=== PATIENT | female | born 1985 | race Caucasian/White ===

== ENCOUNTER 2020-02-26 07:16 | Inpatient (IN) ==
[2020-02-26] MEDS ORDERED: OXYTOCIN 30 UNITS/500 ML BAG IV PRN ×3 (08:25→23:39)
--- NOTE | 2020-02-26 08:33 | History & Physical Report ---
Date of Service February 26, 2020 Assessment & Plan (1) Gestational diabetes mellitus (GDM): (2) Post-term , 40-42 weeks of gestation: 34 yo at 40.6 wks , IOL, GDMA1 VSS Afebrile FS 84 mg/ dl this am Discussed increased risk of shoulder dystocia with GDM and larger babies Bed side US with EFW close to her 1st baby Plan to admit, monitor, Oxytocin, epidural, AROM and anticipe History of Present Illness Primary Care Provider: Jaymie Hartman DO Patient is a 34 yo at 40.6 wk with GDAM1 who is scheduled for IOL for postdates No complaints Irregular ctxs No LOF/VB +FM GBS negative GDMA1: diet controlled Rubella non immune Allergies Allergy/AdvReac Type Severity Reaction Status Date / Time Bactrim Allergy Mild SEVERE Unverified 04/15/16 11:26 SNEEZING sulfamethoxazole Allergy Mild SEVERE Unverified 12/05/18 11:17 SNEEZING trimethoprim Allergy Mild SEVERE Unverified 12/05/18 11:17 SNEEZING Home Medications Home Medications Medication Instructions Recorded Confirmed Type PNV cmb#95-ferrous fumarate-FA 1 tab PO QAM 12/05/18 02/26/20 History [] Patient History Medical History Abdominal pain (Acute) ACL (anterior cruciate ligament) tear (Resolved) Dizziness (Acute) Medication reaction (Acute) Precordial chest pain (Acute) uterine contractions Term Surgical History H/O arthroscopic knee surgery (Resolved) Social History 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 Drug Required: No Beliefs That Will Affect Care: None marital status: Current Living Situation: Family Feels Safe at Home: Yes Smoking Status: Never smoker Second Hand Exposure: No ; Hx Alcohol Use: No Hx Substance Use: No OB History in 2016, 8 b 8 oz, no complications [employer] W[employer] WASH History No h/o STD Review of Systems All systems reviewed & are unremarkable except as noted in HPI & below Physical Exam Constitutional: WD/WN, vitals as above well developed and well nourished Comfortable Gastrointestinal (Abdomen): normal bowel sounds, soft, nontender, no hepatosplenomegaly (gravid) Bed side US: vertex, EFW: [id number] gr Genitourinary: normal external appearance Manual OB Exam: + cervical dilation 2 cm, + cervical effacement 50% and + station -2 OB Exam Monitor Tracing: + external uterine monitor used and + category I Results & Data Vital Signs (Past 12 Hours) Vital Signs Pulse BP 02/26/20 07:58 98 H 118/77
[2020-02-26 08:58] LABS: Hematocrit (blood only) 39.2 % (37-47); Hemoglobin 13.6 g/dL (12.0-16.0); Mean Corpuscular Hemoglobin 34.8 pg (25-34); Mean Corpuscular Volume 100.3 fL (80-100); Mean Platelet Volume 9.7 fL (7.4-10.4); Platelet Count 173 K/uL (130-400); RDW Coefficient of Variation 13.5 % (11.5-14.5); RDW Standard Deviation 49.7 fL (36.4-46.3); Red Blood Count 3.91 M/uL (4.2-5.4); White Blood Count 8.92 K/uL (4.8-10.8)
[2020-02-26] MEDS: LACTATED RINGER'S 1,000 ML IV PRN ×3 (09:18→19:16)
[2020-02-26 09:19] LABS: Alanine Aminotransferase 20 U/L (12-78); Albumin Level 2.9 gm/dl (3.4-5.0); Aspartate Aminotransferase 19 U/L (15-37); BUN Creatinine Ratio 14.2 (10-20); Bilirubin Direct < 0.1 mg/dl (0-0.2); Blood Urea Nitrogen 11 mg/dl (7-18); Calcium 9.3 mg/dl (8.5-10.1); Carbon Dioxide 24 mmol/L (21-32); Chloride 108 mmol/L (98-107); Creatinine Clr Calc Pharmacy 109.9 ml/min; Est GFR (African American) 111.5; Est GFR (Non-African American) 96.2; Glucose 95 mg/dl (70-99); Potassium 3.9 mmol/L (3.5-5.1); Sodium 141 mmol/L (136-145)
[2020-02-26 09:21] LABS: Albumin Globulin Ratio 0.8 (0.9-2); Alkaline Phosphatase 145 U/L (45-117); Bilirubin,Total 0.4 mg/dl (0.2-1); Globulin 3.7 gm/dl (2.5-4.0); Total Protein 6.6 gm/dl (6.4-8.2)
[2020-02-26 09:49] LABS: Mean Corpuscular Hgb Conc 34.7 g/dL (32-36)
[2020-02-26] MEDS ORDERED: miSOPROStoL 50 MCG TAB PO SCH (10:15)
--- NOTE | 2020-02-26 11:19 | Obstetrical Progress Note ---
Date of Service February 26, 2020 Assessment & Plan Admission and Anticipated Discharge Date Admission Date: February 26, 2020 Subjective Patient declined Oxytocin and asked for cervical ripening so that she can ambulate She took PO Cytotec at 1042 and feels well, no ctxs/ LOF/VB +FM's Reviewed her plan Discussed her VE findings and her cervix was feeling soft, central, low and 2 cm dilated Discussed differences between Oxytocin and PG All questions were answered Results & Data ([facility]) Vital Signs (Past 12 Hours) Vital Signs Temp Pulse Resp BP 02/26/20 10:45 96 H 122/75 02/26/20 09:25 90 124/77 02/26/20 08:02 37.2 C 98 H 20 115/77 02/26/20 07:58 98 H 118/77
--- NOTE | 2020-02-26 14:51 | Obstetrical Progress Note ---
Date of Service February 26, 2020 Assessment & Plan Admission and Anticipated Discharge Date Admission Date: February 26, 2020 Subjective Patient is reevaluated Feels irregular mild ctxs, not painful No LOF/VB +FM Discussed continuing with Cytotec or Cervidil or Pitocin and differences in between, half lifes and what to expect She wanted her cervix to be checked and then decide. CLARICE 2-3 cm/ 60%/ -1, bulging tight bag Patient decided on Pitocin Plan to start low dose Pitocin Continue to monitor Results & Data ([facility]) Vital Signs (Past 12 Hours) Vital Signs Temp Pulse Resp BP 02/26/20 13:46 89 123/75 02/26/20 10:45 96 H 122/75 02/26/20 09:25 90 124/77 02/26/20 08:02 37.2 C 98 H 20 115/77 02/26/20 07:58 98 H 118/77
[2020-02-26] MEDS ORDERED: ePHEDrine sulfate 50 MG/ML AMP ONE (18:41)
[2020-02-26] MEDS ORDERED: BUPIVACAINE 0.25% 30 ML VIAL ONE (18:42)
[2020-02-26] MEDS ORDERED: fentaNYL citrate 100 MCG/2 ML VIAL ONE (18:42)
[2020-02-26] MEDS ORDERED: fentaNYL 2MCG/ML ROPIV 1.25MG/ML 100 ML BAG EPI ONE (18:43)
--- NOTE | 2020-02-26 19:58 | Anesthesiology Consultation ---
Date of Service February 26, 2020 Assessment & Plan (1) Encounter for pre-operative examination: Chart Review Chart Review: Acceptable Risk for Surgery and Patient NOT seen in Pre Admission Testing Consults Requested none ASA ASA2 Proposed Anesthesia Anesthesia Type: Labor Epidural Risk / Benefits Reviewed With: PT / POA / Parent / Guardian, Accepts Plan and Informed Consent Obtained History Height/Weight Height: 5 ft 6 in Weight: 86.636 kg Allergies Allergy/AdvReac Type Severity Reaction Status Date / Time Bactrim Allergy Mild SEVERE Unverified 04/15/16 11:26 SNEEZING sulfamethoxazole Allergy Mild SEVERE Verified 02/26/20 19:31 SNEEZING trimethoprim Allergy Mild SEVERE Verified 02/26/20 19:31 SNEEZING Medications Home Medications Medication Instructions Recorded Confirmed Last Taken PNV cmb#95-ferrous fumarate-FA 1 tab PO QAM 12/05/18 02/26/20 02/26/20 06:00 [] Active Medications Generic Name Dose Route Start Last Admin Trade Name Freq PRN Reason Stop Dose Admin Lactated Ringer's 1,000 mls @ 150 mls/hr 02/26/20 08:25 02/26/20 19:16 Lr IV 02/28/20 08:24 125 mls/hr .[id number] PRN Administration L&D Protocol Protocol Oxytocin 30 units in 500 mls @ 2 mls/hr 02/26/20 09:35 02/26/20 15:00 Pitocin IV 02/28/20 09:34 0.12 units/hr .Q24H PRN 2 mls/hr Labor Induction/Augmentation Administration Protocol 0.12 UNITS/HR Misoprostol 50 mcg 02/26/20 10:15 02/26/20 10:42 Cytotec PO 03/27/20 10:14 50 mcg Q4 IGNACIO Administration NPO Date Last Intake of Fluids: 02/26/20 Time Last Intake of Fluids: 19:53 Date Last Intake of Solids: 02/26/20 Time Last Intake of Solids: 07:00 Past Medical History Medical History Abdominal pain (Acute) ACL (anterior cruciate ligament) tear (Resolved) Dizziness (Acute) Medication reaction (Acute) Precordial chest pain (Acute) uterine contractions Term Exercise / Class Metabolic Activity II 4-5 Yardwork/Stairs/Walk up hill Past Family History Family History Other No pertinent family history in first degree relatives Past Surgical History Surgical History H/O arthroscopic knee surgery (Resolved) Past Anesthesia History No Hx of Anesthesia Complications History of PONV No Hx of PONV Social History Smoking Status: Never smoker Do You Dip or Chew Tobacco: No Hx Alcohol Use: No Hx Substance Use: No Review of Systems Patient denies history of abnormal bleeding or bleeding disorder. Patient denies active use of anticoagulants other than low dose aspirin. Patient denies numbness, tingling or weakness in lower extremities. Physical Exam Vital Signs Last Vital Signs Temp 36.6 C 02/26/20 19:09 Pulse 84 02/26/20 19:09 Resp 20 02/26/20 19:09 BP 132/74 02/26/20 19:09 Constitutional not obese (Gravid) ENMT Mouth: no TMJ abnormality and oral opening not small Thyromental Distance: > or= 3.5 Finger Breadths Mallampati Class: II Neck normal visual inspection; neck extension not limited Respiratory normal respiratory effort Auscultation: lungs clear to auscultation bilaterally Cardiovascular Rate/Rhythm: regular rate and regular rhythm Heart Sounds: no murmur Neurologic moves all extremities Motor/Sensory: no sensory deficit Psychiatric Orientation: alert and oriented x 3 Testing Laboratory Results 02/26/20 08:46 02/26/20 08:46 02/26/20 02/26/20 02/26/20 19:03 13:28 09:23 POC Glucose 86 80 98
[2020-02-26] MEDS ORDERED: NALOXONE HCL 0.4 MG/1 ML VIAL/CARP IV PRN (21:05)
[2020-02-26] MEDS ORDERED: NALOXONE HCL 1 MG in SODIUM CHLORIDE 0.9% 1000ML 1,000 ML IV PRN (21:05)
[2020-02-26] MEDS ORDERED: ePHEDrine sulfate 50 MG/ML AMP IV PRN (21:05)
[2020-02-26] MEDS ORDERED: DiphenhydrAMINE HCL 50 MG/ML VIAL IV PRN (21:05)
[2020-02-26] MEDS ORDERED: ONDANSETRON INJ 2 MG/ML 2 ML VIAL IV PRN (21:05)
[2020-02-26] MEDS ORDERED: fentaNYL 2MCG/ML ROPIV 1.25MG/ML 100 ML BAG EPI PRN (21:05)
--- NOTE | 2020-02-26 21:18 | Obstetrical Progress Note ---
Date of Service February 26, 2020 Assessment & Plan Admission and Anticipated Discharge Date Admission Date: February 26, 2020 Subjective Patient is reevaluated She has just received epidural for pain and comfortable SROM ed on 1955, cervix was checked by her nurse at 2100 and was 6 cm, high FHR categ I [place] ctxs q 2-4 min, pitocin is at 2 mu/min Continue to monitor, increase pitocin to 4 miu/min Results & Data ([facility]) Vital Signs (Past 12 Hours) Vital Signs Temp Pulse Resp BP Pulse Ox 20 21:16 93 H 134/82 072020 21:13 93 H 139/79 0720/20 21:11 97 H 129/78 100 07/20/20 21:10 97 H 130/79 0720/20 21:08 86 139/79 07/20/20 21:06 91 H 100 07/20/20 21:05 88 117/69 07/20/20 21:03 83 114/67 07/20/20 21:01 89 118/65 100 07/20/20 20:59 92 H 116/68 07/20/20 20:58 36.5 C 18 07/20/20 20:57 85 119/70 07/20/20 20:56 86 114/67 100 07/20/20 20:53 93 H 108/65 07/20/20 20:51 83 100/59 L 100 07/20/20 20:49 86 111/57 L 07/20/20 20:47 88 114/55 L 07/20/20 20:46 91 H 100 07/20/20 20:45 86 115/63 07/20/20 20:43 93 H 119/65 07/20/20 20:41 85 118/66 100 07/20/20 20:39 93 H 124/66 07/20/20 20:37 87 134/73 07/20/20 20:36 83 118/69 100 07/20/20 20:31 97 H 100 07/20/20 20:26 97 H 100 07/20/20 20:21 103 H 100 07/20/20 20:16 111 H 100 07/20/20 20:11 94 H 100 07/20/20 20:09 92 H 122/72 07/20/20 20:06 85 100 07/20/20 20:01 87 100 07/20/20 19:59 20 02/26/20 19:58 91 H 94 02/26/20 19:56 91 H 100 02/26/20 19:51 93 H 100 02/26/20 19:09 36.6 C 84 20 132/74 02/26/20 19:05 36.6 C 20 02/26/20 18:40 103 H 120/81 02/26/20 16:02 94 H 136/77 02/26/20 14:46 37.0 C 89 18 02/26/20 13:46 89 123/75 02/26/20 10:45 96 H 122/75 02/26/20 09:25 90 124/77
[2020-02-26] MEDS ORDERED: Nursing to Pharmacy Communication SCH (22:30)
--- NOTE | 2020-02-26 22:40 | Obstetrical Progress Note ---
Date of Service February 26, 2020 Assessment & Plan Admission and Anticipated Discharge Date Admission Date: February 26, 2020 Subjective Late entry from 2220 Patient state she does not feel anything, unable to move legs Epidural rate at 12 VE: ant lip station at +1 FHR categ I We contacted Dr. Curry and recommended to decrease rate to8 Continue to monitor Anticipate SVS Results & Data ([facility]) Vital Signs (Past 12 Hours) Vital Signs Temp Pulse Resp BP Pulse Ox 02/26/20 22:36 81 100 02/26/20 22:35 85 131/75 02/26/20 22:31 86 100 02/26/20 22:26 86 100 02/26/20 22:21 91 H 100 02/26/20 22:20 83 131/76 02/26/20 22:16 116 H 100 02/26/20 22:11 93 H 100 02/26/20 22:06 91 H 100 02/26/20 22:05 96 H 126/73 02/26/20 22:01 92 H 100 02/26/20 21:56 94 H 100 02/26/20 21:51 95 H 100 02/26/20 21:46 110 H 100 02/26/20 21:41 78 100 02/26/20 21:36 79 100 02/26/20 21:34 80 136/81 02/26/20 21:31 100 H 100 02/26/20 21:30 18 02/26/20 21:26 82 100 02/26/20 21:21 83 100 02/26/20 21:18 100 H 129/79 02/26/20 21:16 95 H 134/82 100 02/26/20 21:13 93 H 139/79 02/26/20 21:11 97 H 129/78 100 02/26/20 21:10 97 H 130/79 02/26/20 21:08 86 139/79 02/26/20 21:06 91 H 100 02/26/20 21:05 88 117/69 02/26/20 21:03 83 114/67 02/26/20 21:01 89 118/65 100 02/26/20 21:00 18 02/26/20 20:59 92 H 116/68 02/26/20 20:58 36.5 C 18 02/26/20 20:57 85 119/70 07/20/20 20:56 86 114/67 100 07/20/20 20:53 93 H 108/65 07/20/20 20:51 83 100/59 L 100 07/20/20 20:49 86 111/57 L 07/20/20 20:47 88 114/55 L 07/20/20 20:46 91 H 100 07/20/20 20:45 86 115/63 07/20/20 20:43 93 H 119/65 07/20/20 20:41 85 118/66 100 07/20/20 20:39 93 H 124/66 07/20/20 20:37 87 134/73 07/20/20 20:36 83 118/69 100 07/20/20 20:31 97 H 100 07/20/20 20:26 97 H 100 07/20/20 20:21 103 H 100 07/20/20 20:16 111 H 100 07/20/20 20:11 94 H 100 07/20/20 20:09 92 H 122/72 07/20/20 20:06 85 100 07/20/20 20:01 87 100 07/20/20 19:59 20 07/20/20 19:58 91 H 94 07/20/20 19:56 91 H 100 07/20/20 19:51 93 H 100 07/20/20 19:09 36.6 C 84 20 132/74 07/20/20 19:05 36.6 C 20 07/20/20 18:40 103 H 120/81 07/20/20 16:02 94 H 136/77 07/20/20 14:46 37.0 C 89 18 07/20/20 13:46 89 123/75 07/20/20 10:45 96 H 122/75
[2020-02-26] MEDS ORDERED: OXYCODONE/ACETAMINOPHEN 5mg/325mg TAB PO PRN (23:39)
[2020-02-26] MEDS ORDERED: bisacodyL 10 MG SUPP PR PRN (23:39)
[2020-02-26] MEDS ORDERED: SUPERCREAM 0.870% 15 GM JAR EXT PRN (23:39)
[2020-02-26] MEDS ORDERED: HYDROCORTISONE ACETATE 25 MG SUPP PR PRN (23:39)
[2020-02-26] MEDS ORDERED: MEASLES, MUMPS & RUBELLA VIRUS VIAL SQ ONE (23:39)
[2020-02-26] MEDS ORDERED: DIPHTHERIA/TETANUS/PERTUSSIS 0.5 ML SYR/VIAL IM ONE (23:39)
[2020-02-26] MEDS ORDERED: BENZOCAINE 20% AER SPR 82.5 GM CAN EXT PRN (23:39)
[2020-02-26] MEDS ORDERED: IBUPROFEN 600 MG TAB PO ONE (23:46)
[2020-02-27] MEDS: ACETAMINOPHEN 325 MG TAB PO PRN ×4 (01:27→19:51)
--- NOTE | 2020-02-27 03:21 | Delivery Summary ---
DATE OF OPERATION: 02/26/2020 TIME OF DELIVERY OF BABY: 22:57 p.m. DETAILS OF DELIVERY: The patient was found to be fully dilated and desired to push. She pushed through 3 contractions and then delivered the head without difficulty and then turtle sign was noted and unable to deliver shoulders with minimal traction. There was a nuchal cord around the neck x2 and those were reduced and then with Ruddy maneuver and suprapubic pressure was applied by her nurse but unable to deliver anterior / left shoulder. Then posterior/ right shoulder was delivered with the arm and then the rest of body was delivered without difficulty. Time between delivery of the head and body was less than 60 seconds. Baby was handed off to the mother where mouth and nose were suctioned. Cord was clamped x2 and cut. Baby was handed to the waiting pediatric team. He started to cry and move vigorously at the crib. Cord blood was obtained. Vagina and perineum were checked for lacerations. There was a third-degree perineal laceration it was confirmed with rectal exam. External anal sphincter was involved. Those sphincter muscles were held with Allis clamps, brought to the midline and the gloves were changed and those sphincter muscles were reapproximated with 2-0 Vicryl with U-type stitches and [id number] stitches and then the perineal body muscles around it were also reapproximated to support the sphincter. Rectal exam was repeated. Good sphincter tone and integrity was noted. No sutures were felt. Gloves were changed. With another sterile 2-0 Vicryl, vaginal mucosa was repaired with 2-0 Vicryl in a running fashion, skin in a subcuticular fashion. Excellent hemostasis was achieved. Placenta was found to be in the vagina, delivered spontaneous as intact and complete. Uterus was explored, found to be empty. Lower segment was cleared of all clots and debris. Fundus was firm. EBL was 200 mL. Mom and baby tolerated the procedure well. Sponge, lap, needle count was correct x2. Baby was a viable male , Apgars 8/9, weight is 4023 gr. No complications happened and I was present during whole procedure. I attest to the content of the Intraoperative Record and any orders documented therein. Any exceptions are noted below. MTDD
[2020-02-27] MEDS: IBUPROFEN 600 MG TAB PO PRN ×4 (04:30→21:50)
[2020-02-27 06:03] LABS: Hematocrit (blood only) 37.8 % (37-47); Hemoglobin 12.9 g/dL (12.0-16.0); Mean Corpuscular Hemoglobin 34.6 pg (25-34); Mean Corpuscular Hgb Conc 34.1 g/dL (32-36); Mean Corpuscular Volume 101.3 fL (80-100); Mean Platelet Volume 9.8 fL (7.4-10.4); Platelet Count 179 K/uL (130-400); RDW Coefficient of Variation 13.4 % (11.5-14.5); RDW Standard Deviation 49.3 fL (36.4-46.3); Red Blood Count 3.73 M/uL (4.2-5.4)
--- NOTE | 2020-02-27 06:08 | Anesthesia Procedure Note ---
Date of Service February 27, 2020 Anesthesia Post Epidural Note Vital Signs Vital Signs: Temp Pulse Resp BP Pulse Ox 36.4 C L 96 H 16 118/70 100 02/27/20 03:00 02/27/20 03:00 02/27/20 03:00 02/27/20 03:00 02/27/20 03:00 Pain Intensity Bilateral Episiotomy/Laceration: Pain Intensity: 1 Notes Mental Status: alert / awake / arousable and participated in evaluation Nausea / Vomiting: adequately controlled Pain: adequately controlled Airway Patency, RR, SpO2: stable & adequate BP & HR: stable & adequate Hydration State: stable & adequate Neuraxial Anesthesia: was administered and sensory block is resolving Anesthetic Complications: no major complications apparent, see Notes below and Pt Satisfied with anesthetic care Epidural: Removed without complications and With tip intact Notes: Epidural site clean, dry and intact. No signs of edema, erythema or bruising at insertion site. Pt instructed to request anesthesia if she has residual lower extremity numbness or if she develops lower extremity pain, weakness, or headache. Patient reports back is tender - I am unsurprised due to multiple attempts at placement. This should improve and patient should contact anesthesia if it doesn't improve over the next few days.
[2020-02-27] MEDS ORDERED: Nursing to Pharmacy Communication SCH (07:30)
[2020-02-27] MEDS: PRENATAL VITAMIN 1 TAB PO SCH (08:51)
[2020-02-27] MEDS: FERROUS SULFATE 325 MG TAB PO SCH (08:51)
[2020-02-27] MEDS: DOCUSATE SODIUM 100 MG CAP PO SCH ×2 (08:51→20:09)
[2020-02-27] MEDS: MAGNESIUM HYDROXIDE SUSP 30 ML UDC PO SCH (08:51)
--- NOTE | 2020-02-27 10:49 | Obstetrical Progress Note ---
Date of Service February 27, 2020 Assessment & Plan Admission and Anticipated Discharge Date Admission Date: February 26, 2020 Subjective PPD#1 doing well tolerating diet passing gas Physical Exam Constitutional: WD/WN, vitals as above comfortable no edema neg Enoch's Results & Data ([facility]) Vital Signs (Past 12 Hours) Vital Signs Temp Pulse Pulse Resp BP BP Pulse Ox 02/27/20 07:25 36.6 C 75 16 115/70 100 02/27/20 03:00 36.4 C L 96 H 16 118/70 100 02/27/20 02:03 78 115/71 02/27/20 01:02 82 125/68 02/27/20 00:55 18 02/27/20 00:34 78 118/66 02/27/20 00:25 18 02/27/20 00:16 78 115/71 02/26/20 23:54 72 116/69 02/26/20 23:39 82 122/73 02/26/20 23:26 89 100 02/26/20 23:25 36.5 C 18 02/26/20 23:24 91 H 121/71 02/26/20 23:21 85 100 02/26/20 23:18 84 121/66 02/26/20 23:16 86 100 02/26/20 23:11 87 100 02/26/20 23:06 89 100 02/26/20 23:03 89 126/60 02/26/20 23:01 96 H 100 02/26/20 22:57 20 02/26/20 22:56 99 H 76 L 02/26/20 22:51 99 H 100 02/26/20 22:49 99 H 123/74 Laboratory Results 02/26/20 02/26/20 02/26/20 08:46 08:46 09:23 WBC 8.92 RBC 3.91 L Hgb 13.6 Hct 39.2 MCV 100.3 H MCH 34.8 H MCHC 34.7 RDW Std Deviation 49.7 H RDW Coeff of Ciro 13.5 Plt Count 173 MPV 9.7 Sodium 141 Potassium 3.9 Chloride 108 H Carbon Dioxide 24 Anion Gap 9.0 BUN 11 Creatinine 0.80 Est Cr Clr Drug Dosing 109.9 Est GFR ( Amer) 111.5 Est GFR (Non-Af Amer) 96.2 BUN/Creatinine Ratio 14.2 Glucose 95 POC Glucose 98 Calcium 9.3 Total Bilirubin 0.4 Direct Bilirubin < 0.1 AST 19 ALT 20 Alkaline Phosphatase 145 H Total Protein 6.6 Albumin 2.9 L Globulin 3.7 Albumin/Globulin Ratio 0.8 L 02/26/20 02/26/20 02/26/20 13:28 19:03 21:16 WBC RBC Hgb Hct MCV MCH MCHC RDW Std Deviation RDW Coeff of Ciro Plt Count MPV Sodium Potassium Chloride Carbon Dioxide Anion Gap BUN Creatinine Est Cr Clr Drug Dosing Est GFR ( Amer) Est GFR (Non-Af Amer) BUN/Creatinine Ratio Glucose POC Glucose 80 86 83 Calcium Total Bilirubin Direct Bilirubin AST ALT Alkaline Phosphatase Total Protein Albumin Globulin Albumin/Globulin Ratio 02/26/20 02/27/20 22:25 05:40 WBC 14.80 H RBC 3.73 L Hgb 12.9 Hct 37.8 MCV 101.3 H MCH 34.6 H MCHC 34.1 RDW Std Deviation 49.3 H RDW Coeff of Ciro 13.4 Plt Count 179 MPV 9.8 Sodium Potassium Chloride Carbon Dioxide Anion Gap BUN Creatinine Est Cr Clr Drug Dosing Est GFR ( Amer) Est GFR (Non-Af Amer) BUN/Creatinine Ratio Glucose POC Glucose 73 Calcium Total Bilirubin Direct Bilirubin AST ALT Alkaline Phosphatase Total Protein Albumin Globulin Albumin/Globulin Ratio
[2020-02-27] MEDS ORDERED: bisacodyL 5 MG TABEC PO SCH (20:00)
[2020-02-28] MEDS: MAGNESIUM HYDROXIDE SUSP 30 ML UDC PO SCH (00:25)
[2020-02-28] MEDS: IBUPROFEN 600 MG TAB PO PRN ×3 (01:25→12:47)
[2020-02-28] MEDS: ACETAMINOPHEN 325 MG TAB PO PRN ×2 (01:26→07:43)
[2020-02-28 06:55] LABS: Hematocrit (blood only) 32.9 % (37-47); Hemoglobin 11.7 g/dL (12.0-16.0)
[2020-02-28] MEDS: FERROUS SULFATE 325 MG TAB PO SCH (07:42)
[2020-02-28] MEDS: PRENATAL VITAMIN 1 TAB PO SCH (07:42)
[2020-02-28] MEDS: DOCUSATE SODIUM 100 MG CAP PO SCH (07:42)
--- NOTE | 2020-02-28 08:02 | Anesthesiology Progress Note ---
Date of Service February 28, 2020 Anesthesia Post Procedure Vital Signs Vital Signs: Temp Pulse Resp BP Pulse Ox 02/27/20 23:25 36.7 C 69 18 111/63 02/27/20 20:00 36.5 C 72 18 117/72 02/27/20 16:30 36.6 C 81 18 114/67 98 02/27/20 11:45 36.9 C 76 18 108/64 Pain Intensity Bilateral Episiotomy/Laceration: Pain Intensity: 1 Generalized: Pain Intensity: 4 Transfer of Care Handoff Completed per policy Notes Mental Status: alert / awake / arousable and participated in evaluation Nausea / Vomiting: adequately controlled Pain: adequately controlled Airway Patency, RR, SpO2: stable & adequate BP & HR: stable & adequate Hydration State: stable & adequate Neuraxial Anesthesia: was administered and sensory block resolved Anesthetic Complications: no major complications apparent and Pt Satisfied with anesthetic care Notes: Patient denies headache, residual numbness or weakness. She continues to have back pain/tenderness directly over the site of epidural attempts. Evaluation of back shows the 5 attempts at insertion. There is a small amount of light bruising at the L3/L4 attempt sites. There is no paraspinal tenderness and no tenderness along the spinal cord above or below the insertion attempt sites. Due to multiple attempts at insertion, it is normal to be experiencing pain and tenderness in these locations. Patient instructed to continue tylenol and motrin as needed for pain and inflammation. In addition, patient was told that it is ok to apply ice for symptomatic relief. Pt is likely to be discharged today. Patient told to contact PAT and request to speak with me if her symptoms do not improve in the next few weeks.
--- NOTE | 2020-02-28 08:21 | Obstetrical Progress Note ---
Date of Service February 28, 2020 Assessment & Plan Admission and Anticipated Discharge Date Admission Date: February 26, 2020 Physical Exam Physical Exam: abdomen soft and non tender no calf tenderness ambulating well vaginal bleeding scant hgb 11.7 Results & Data ([facility]) Vital Signs (Past 12 Hours) Vital Signs Temp Pulse Resp BP 02/27/20 23:25 36.7 C 69 18 111/63
== END 2020-02-28 13:30 | disposition home or self-care (01) | DRG 768 ==
LOC: 4S1 07:46 → 4S2 02-27 02:35